=== PATIENT | male | born 1980 | race Caucasian/White ===

== ENCOUNTER 2018-12-31 12:20 | Emergency (ER) | payer OTHER ==
--- NOTE | 2018-12-31 13:12 | EDM.PDOC ---
ED HPI GENERAL MEDICAL PROBLEM - General Chief Complaint: Wound Recheck Stated Complaint: INFECTED SORE ON BACK Time Seen by Provider: 12/31/18 13:02 Source of Information: Reports: Patient, Family, RN Notes Reviewed History Limitations: Reports: No Limitations - History of Present Illness INITIAL COMMENTS - FREE TEXT/NARRATIVE: 38-year-old gentleman presents emergency department today with a red area on his back this care to be a boil of some sort has opened up they did drain a large amount of thick purulent material from that is still draining there is a red area that is approximately size of a softball he is not had any fevers it is warm to the touch and tender to the area Right Upper Back Pain Score (Numeric/FACES): 2 - Related Data Allergies Allergy/AdvReac Type Severity Reaction Status Date / Time No Known Allergies Allergy Verified 12/31/18 12:41 Home Meds: Home Meds NK [No Known Home Meds] 12/31/18 [History] Past Medical History - Past Surgical History GI Surgical History: Reports: Appendectomy Dermatological Surgical History: Reports: Other (See Below) Social & Family History - Tobacco Use Smoking Status *Q: Never Smoker - Alcohol Use Days Per Week of Alcohol Use: 7 Number of Drinks Per Day: 5 Total Drinks Per Week: 35 - Recreational Drug Use Recreational Drug Use: No ED ROS GENERAL - Review of Systems Review Of Systems: See Below Skin: Reports: Pallor, Rash, Erythema, Wound ED EXAM, GENERAL - Physical Exam Exam: See Below Free Text/Narrative:: Examination the area consistent with an abscess that has opened up there is thick purulent material present with small amount of blood erythematous areas about the size of a softball it is warm to the touch it is such was able to express more thick purulent material from it Exam Limited By: No Limitations General Appearance: Alert, WD/WN, No Apparent Distress Course - Vital Signs Last Recorded V/S: Last Vital Signs Temp 96.7 F 12/31/18 12:44 Pulse 84 12/31/18 12:44 Resp 16 12/31/18 12:44 BP 140/85 12/31/18 12:44 Pulse Ox 95 12/31/18 12:44 Departure - Departure Time of Disposition: 13:11 Disposition: Home, Self-Care 01 Condition: Fair Clinical Impression: Abscess - Discharge Information Referrals: PCP,None [Primary Care Provider] - Additional Instructions: Take full course of antibiotics, follow wound care instruction sheet, recommended sitz baths follow-up primary care upon returning home, call return to the emergency department worsening symptoms - Assessment/Plan Plan: Assessment Acuity = acute Site and laterality = abscess with spontaneous opening and draining Etiology = probable bacterial cause Manifestations = none Location of injury = Home Lab values = wound cultures pending Plan [Placed on antibiotics Keflex 500 mg 4 times a day 7 days and follow-up with his primary care upon returning home handout provided for wound care This note was dictated using [employer] voice recognition software please call with any questions on syntax or grammar.
[2018-12-31] MEDS ORDERED: Lidocaine 1% with EPINEPHrine 1:100,000 50 ML MDV SUBCUT STA (13:27)
== END 2018-12-31 14:00 | disposition home or self-care (01) ==
LOC: JP.ED 12:20
DX: L02.212 Cutaneous abscess of back [any part, except buttock and flank] (principal)
CPT/HCPCS: 87070; 87077; 87186; 87205; 99283